=== PATIENT | female | born 2000 | race Caucasian/White ===

== ENCOUNTER 2021-04-17 10:52 | Emergency (ER) | payer SELFPAY ==
--- NOTE | 2021-04-17 12:01 | EDM.PDOC ---
ED HPI GENERAL MEDICAL PROBLEM - General Chief Complaint: Abdominal Pain Stated Complaint: LT STOMACH/BACK PAIN Time Seen by Provider: 04/17/21 10:54 Source of Information: Reports: Patient History Limitations: Reports: No Limitations - History of Present Illness INITIAL COMMENTS - FREE TEXT/NARRATIVE: 10-year-old female no relevant past medical history presents for left flank pain radiating to left lower quadrant abdomen since last night. Patient states that she woke up in the night with the pain and it went away after about 15 min. Woke up this morning with mild pain which gradually worsened throughout the day. Notes that pain is waxing and waning in intensity but constant. Denies any dysuria or increased urinary frequency. Uncertain if hematuria, patient is currently on her menstrual cycle. No history of renal stones. Patient does endorse nausea with a few episodes of nonbloody emesis. abdomen Pain Score (Numeric/FACES): 7 - Related Data Allergies Allergy/AdvReac Type Severity Reaction Status Date / Time No Known Allergies Allergy Verified 04/17/21 12:03 Home Meds: Home Meds . [No Known Home Meds] 04/17/21 [History] ED ROS GENERAL - Review of Systems Review Of Systems: Comprehensive ROS is negative, except as noted in HPI. ED EXAM, GENERAL - Physical Exam Exam: See Below Exam Limited By: No Limitations General Appearance: Alert, WD/WN, No Apparent Distress Ears: Hearing Grossly Normal Throat/Mouth: Normal Voice, No Airway Compromise Head: Atraumatic, Normocephalic Respiratory/Chest: No Respiratory Distress, Lungs Clear, Normal Breath Sounds, No Accessory Muscle Use Cardiovascular: Normal Peripheral Pulses, Regular Rate, Rhythm GI/Abdominal: Soft, Non-Tender Back Exam: CVA Tenderness (L). No: CVA Tenderness (R) Extremities: Normal Inspection Neurological: Alert, Normal Cognition, Normal Gait Psychiatric: Normal Affect, Normal Mood Skin Exam: Warm, Dry, Intact, Normal Color Course - Vital Signs Last Recorded V/S: Last Vital Signs Temp 97.9 F 04/17/21 12:00 Pulse 82 04/17/21 12:00 Resp 16 04/17/21 12:00 BP 111/72 04/17/21 12:00 Pulse Ox 99 04/17/21 12:00 - Orders/Labs/Meds Orders: Active Orders 24 hr Category Date Time Status Saline Lock Insert [OM.PC] Stat Oth 04/17/21 12:04 Ordered Labs: Laboratory Tests 04/17/21 04/17/21 04/17/21 Range/Units 11:57 11:57 12:20 WBC 5.92 (4.0-11.0) K/uL RBC 4.40 (4.30-5.90) M/uL Hgb 13.2 (12.0-16.0) g/dL Hct 39.2 (36.0-46.0) % MCV 89.1 (80.0-98.0) fL MCH 30.0 (27.0-32.0) pg MCHC 33.7 (31.0-37.0) g/dL RDW Std Deviation 42.3 (28.0-62.0) fl RDW Coeff of [place] 13 (11.0-15.0) % Plt Count 201 (150-400) K/uL MPV 10.70 (7.40-12.00) fL Neut % (Auto) 75.8 (48.0-80.0) % Lymph % (Auto) 18.2 (16.0-40.0) % [place] % (Auto) 5.1 (0.0-15.0) % Eos % (Auto) 0.7 (0.0-7.0) % Baso % (Auto) 0.2 (0.0-1.5) % Neut # (Auto) 4.5 (1.4-5.7) K/uL Lymph # (Auto) 1.1 (0.6-2.4) K/uL [place] # (Auto) 0.3 (0.0-0.8) K/uL Eos # (Auto) 0.0 (0.0-0.7) K/uL Baso # (Auto) 0.0 (0.0-0.1) K/uL Nucleated RBC % 0.0 /100WBC Nucleated RBCs # 0 K/uL Sodium (136-145) mmol/L Potassium (3.5-5.1) mmol/L Chloride (98-107) mmol/L Carbon Dioxide (21.0-32.0) mmol/L BUN (7.0-18.0) mg/dL Creatinine (0.6-1.0) mg/dL Est Cr Clr Drug Dosing mL/min Estimated GFR (MDRD) ml/min Glucose (74-106) mg/dL Calcium (8.5-10.1) mg/dL Total Bilirubin (0.2-1.0) mg/dL AST (15-37) IU/L ALT (14-63) IU/L Alkaline Phosphatase (46-116) U/L Total Protein (6.4-8.2) g/dL Albumin (3.4-5.0) g/dL Globulin (2.6-4.0) g/dL Albumin/Globulin Ratio (0.9-1.6) Urine Color YELLOW Urine Appearance CLEAR Urine pH 6.0 (5.0-8.0) Ur Specific [place] >= 1.030 (1.001-1.035) Urine Protein NEGATIVE (NEGATIVE) mg/dL Urine Glucose (UA) NEGATIVE (NEGATIVE) mg/dL Urine Ketones NEGATIVE (NEGATIVE) mg/dL Urine Occult Blood MODERATE H (NEGATIVE) Urine Nitrite NEGATIVE (NEGATIVE) Urine Bilirubin NEGATIVE (NEGATIVE) Urine Urobilinogen 0.2 (<2.0) EU/dL Ur Leukocyte Esterase NEGATIVE (NEGATIVE) Urine RBC 10-20 (0-2/HPF) Urine WBC 0-5 (0-5/HPF) Ur Epithelial Cells RARE (NONE-FEW) Urine Bacteria NOT SEEN (NEGATIVE) Urine Mucus LIGHT (NONE-MOD) Urine HCG, Qual NEGATIVE (NEGATIVE) 04/17/21 Range/Units 12:20 WBC (4.0-11.0) K/uL RBC (4.30-5.90) M/uL Hgb (12.0-16.0) g/dL Hct (36.0-46.0) % MCV (80.0-98.0) fL MCH (27.0-32.0) pg MCHC (31.0-37.0) g/dL RDW Std Deviation (28.0-62.0) fl RDW Coeff of [place] (11.0-15.0) % Plt Count (150-400) K/uL MPV (7.40-12.00) fL Neut % (Auto) (48.0-80.0) % Lymph % (Auto) (16.0-40.0) % [place] % (Auto) (0.0-15.0) % Eos % (Auto) (0.0-7.0) % Baso % (Auto) (0.0-1.5) % Neut # (Auto) (1.4-5.7) K/uL Lymph # (Auto) (0.6-2.4) K/uL [place] # (Auto) (0.0-0.8) K/uL Eos # (Auto) (0.0-0.7) K/uL Baso # (Auto) (0.0-0.1) K/uL Nucleated RBC % /100WBC Nucleated RBCs # K/uL Sodium 140 (136-145) mmol/L Potassium 3.8 (3.5-5.1) mmol/L Chloride 105 (98-107) mmol/L Carbon Dioxide 24.4 (21.0-32.0) mmol/L BUN 7 (7.0-18.0) mg/dL Creatinine 0.7 (0.6-1.0) mg/dL Est Cr Clr Drug Dosing 114.75 mL/min Estimated GFR (MDRD) > 60.0 ml/min Glucose 109 H (74-106) mg/dL Calcium 8.7 (8.5-10.1) mg/dL Total Bilirubin 0.9 (0.2-1.0) mg/dL AST 11 L (15-37) IU/L ALT 19 (14-63) IU/L Alkaline Phosphatase 71 (46-116) U/L Total Protein 7.6 (6.4-8.2) g/dL Albumin 3.9 (3.4-5.0) g/dL Globulin 3.7 (2.6-4.0) g/dL Albumin/Globulin Ratio 1.1 (0.9-1.6) Urine Color Urine Appearance Urine pH (5.0-8.0) Ur Specific [place] (1.001-1.035) Urine Protein (NEGATIVE) mg/dL Urine Glucose (UA) (NEGATIVE) mg/dL Urine Ketones (NEGATIVE) mg/dL Urine Occult Blood (NEGATIVE) Urine Nitrite (NEGATIVE) Urine Bilirubin (NEGATIVE) Urine Urobilinogen (<2.0) EU/dL Ur Leukocyte Esterase (NEGATIVE) Urine RBC (0-2/HPF) Urine WBC (0-5/HPF) Ur Epithelial Cells (NONE-FEW) Urine Bacteria (NEGATIVE) Urine Mucus (NONE-MOD) Urine HCG, Qual (NEGATIVE) Meds: Medications Discontinued Medications Generic Name Dose Route Start Last Admin Trade Name Yulia PRN Reason Stop Dose Admin Sodium Chloride 1,000 mls @ 999 mls/hr 04/17/21 12:04 04/17/21 12:19 Normal Saline IV 04/17/21 13:04 999 mls/hr .Bolus ONE Administration Ketorolac Tromethamine 15 mg 04/17/21 12:04 04/17/21 12:19 Ketorolac 15 Mg/Ml Sdv IVPUSH 04/17/21 12:05 15 mg STAT STA Administration Ondansetron HCl 4 mg 04/17/21 12:04 04/17/21 12:19 Ondansetron 4 Mg/2 Ml Sdv IVPUSH 04/17/21 12:05 4 mg ONETIME ONE Administration - Re-Assessments/Exams Free Text/Narrative Re-Assessment/Exam: 04/17/21 12:07 Patient symptoms concerning for renal stone. Lower suspicion ovarian torsion. Will get labs and CT imaging. 04/17/21 14:[address] imaging shows a 2 mm stone with minimal hydronephrosis. Will discharge with symptomatic medications and urology follow-up. Departure - Departure Time of Disposition: 14:01 Disposition: Home, Self-Care 01 Condition: Good Clinical Impression: Kidney stone - Discharge Information Instructions: Kidney Stones Referrals: Reagan Booker MD [Primary Care Provider] - Forms: ED Department Discharge Additional Instructions: Your CT shows a 2 mm left-sided kidney stone. This is highly likely to pass on its own, however, urology follow-up is provided below. If your pain is not well controlled at home you should come back to the emergency department for reassessment and pain control. I did send for prescriptions to your pharmacy. 1 is called Flomax which can help facilitate stone passage. Another is high- dose Motrin which can help with pain and inflammation. Another is Zofran which can be used symptomatically for relief of nausea. The other is Percocet which is an opioid pain medicine that should be used as needed for pain not well controlled with Motrin alone. Dr. Ugarte, [facility] [phone] [place] [address] The following information is given to patients seen in the emergency department who are being discharged to home. This information is to outline your options for follow-up care. We provide all patients seen in our emergency department with a follow-up referral. The need for follow-up, as well as the timing and circumstances, are variable depending upon the specifics of your emergency department visit. If you don't have a primary care physician on staff, we will provide you with a referral. We always advise you to contact your personal physician following an emergency department visit to inform them of the circumstance of the visit and for follow-up with them and/or the need for any referrals to a consulting specialist. The emergency department will also refer you to a specialist when appropriate. This referral assures that you have the opportunity for follow-up care with a specialist. All of these measure are taken in an effort to provide you with optimal care, which includes your follow-up. Under all circumstances we always encourage you to contact your private physician who remains a resource for coordinating your care. When calling for follow-up care, please make the office aware that this follow-up is from your recent emergency room visit. If for any reason you are refused follow-up, please contact the [facility] Emergency Department at and asked to speak to the emergency department charge nurse. Please follow up with your primary care physician. If you do not have a primary care physician, see below: [facility] [address] [place] [id number] [address] [facility] [address] [place] [id number] Sepsis Event Note (ED) - Focused Exam Vital Signs: Vital Signs Temp Pulse Resp BP Pulse Ox 04/17/21 12:00 97.9 F 82 16 111/72 99 - My Orders Last 24 Hours: My Active Orders 04/17/21 12:04 Saline Lock Insert [OM.PC] Stat - Assessment/Plan Last 24 Hours: My Active Orders 04/17/21 12:04 Saline Lock Insert [OM.PC] Stat
[2021-04-17] MEDS ORDERED: Ketorolac 15 MG/ML SDV IVPUSH STA (12:04)
[2021-04-17] MEDS ORDERED: Ondansetron 4 MG/2 ML SDV IVPUSH ONE ×2 (12:04→14:03)
[2021-04-17] MEDS ORDERED: Sodium Chloride 0.9% 1,000 ML IV ONE (12:04)
[2021-04-17 12:49] LABS: BLOOD UREA NITROGEN,BUN 7 mg/dL (7.0-18.0); CARBON DIOXIDE,CO2 24.4 mmol/L (21.0-32.0); CHLORIDE,CL 105 mmol/L (98-107); GLUCOSE RANDOM 109 mg/dL (74-106); POTASSIUM,K 3.8 mmol/L (3.5-5.1); SODIUM,NA 140 mmol/L (136-145)
--- NOTE | 2021-04-17 13:51 | CT ---
Indication: Left flank pain Technique: Nonenhanced axial CT imaging through the abdomen and pelvis. Sagittal and coronal reconstructions are provided. Comparison: None Findings: There is a 2 mm stone at the left ureterovesical junction. There is no significant hydronephrosis or renal edema. Additional small nonobstructive renal stones are noted bilaterally, measuring 2 mm in the left upper pole and 3 mm in the right upper pole. There is unremarkable noncontrast appearance of the liver, gallbladder, spleen, pancreas, and adrenal glands. There is normal caliber of the abdominal aorta. No lymphadenopathy is appreciated in the abdomen or pelvis. The stomach and duodenum are unremarkable. There is normal caliber of the small bowel. The appendix is noninflamed. There is no colonic wall thickening or mesenteric edema. The osseous structures are unremarkable. The included lung bases are clear. Impression: 1. A 2 mm stone at the left ureterovesical junction. No significant hydronephrosis or renal edema. 2. Additional small bilateral nonobstructive renal stones. Please note that all CT scans at this facility use dose modulation, iterative reconstruction, and/or weight-based dosing when appropriate to reduce radiation dose to as low as reasonably achievable. Dictated by Casey Zuleta MD @ 04/17/2021 1:51:06 PM (Electronically Signed)
[2021-04-17] MEDS ORDERED: Morphine 4 MG/ML VIAL IVPUSH ONE (14:03)
== END 2021-04-17 14:36 | disposition home or self-care (01) ==
LOC: MW.ED 10:52
DX: N20.0 Calculus of kidney (principal)
CPT/HCPCS: 36415; 74176; 80053; 81001; 81025; 85025; 96374; 96375; 99284; J1885; J2270; J2405; J7030

== ENCOUNTER 2021-05-02 12:20 | Emergency (ER) | payer SELFPAY ==
[2021-05-02] MEDS ORDERED: Ketorolac 15 MG/ML SDV IVPUSH ONE (12:43)
[2021-05-02] MEDS ORDERED: Sodium Chloride 0.9% 1,000 ML IV ONE (12:51)
[2021-05-02] MEDS ORDERED: Ondansetron 4 MG/2 ML SDV IVPUSH ONE (12:51)
--- NOTE | 2021-05-02 12:51 | EDM.PDOC ---
ED HPI GENERAL MEDICAL PROBLEM - General Chief Complaint: Genitourinary Problem Stated Complaint: STOMACH PAIN Time Seen by Provider: 05/02/21 12:26 Source of Information: Reports: Patient History Limitations: Reports: No Limitations - History of Present Illness INITIAL COMMENTS - FREE TEXT/NARRATIVE: Patient is a 20-year-old female who presents today for left-sided flank pain. Patient was seen here earlier this month for similar symptoms had a kidney stone. She reports increased pain today with vomiting but denies any blood in the urine. Patient states the pain is achy not made better or worse with any events not radiating. Patient has no other complaints. right lower back, right lower abdomen Pain Score (Numeric/FACES): 10 - Related Data Allergies Allergy/AdvReac Type Severity Reaction Status Date / Time No Known Allergies Allergy Verified 05/02/21 12:29 Home Meds: Home Meds . 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 Musculoskeletal History: Reports: None Neurological History: Reports: None Psychiatric History: Reports: None Endocrine/Metabolic History: Reports: None Hematologic History: Reports: None Immunologic History: Reports: None Oncologic (Cancer) History: Reports: None Dermatologic History: Reports: None - Infectious Disease History Infectious Disease History: Reports: Chicken Pox - Past Surgical History Head Surgeries/Procedures: Reports: None HEENT Surgical History: Reports: None Cardiovascular Surgical History: Reports: None Respiratory Surgical History: Reports: None GI Surgical History: Reports: None Female Surgical History: Reports: None Endocrine Surgical History: Reports: None Neurological Surgical History: Reports: None Musculoskeletal Surgical History: Reports: Other (See Below) Other Musculoskeletal Surgeries/Procedures:: 3 Hip surgeries Oncologic Surgical History: Reports: None Dermatological Surgical History: Reports: None Social & Family History - Family History Family Medical History: No Pertinent Family History - Tobacco Use Tobacco Use Status *Q: Never Tobacco User - Caffeine Use Caffeine Use: Reports: None - Recreational Drug Use Recreational Drug Use: No ED ROS GENERAL - Review of Systems Review Of Systems: See Below Constitutional: Reports: No Symptoms HEENT: Reports: No Symptoms Respiratory: Reports: No Symptoms Cardiovascular: Reports: No Symptoms Endocrine: Reports: No Symptoms GI/Abdominal: Reports: Abdominal Pain : Reports: No Symptoms Musculoskeletal: Reports: No Symptoms Skin: Reports: No Symptoms Neurological: Reports: No Symptoms Psychiatric: Reports: No Symptoms Hematologic/Lymphatic: Reports: No Symptoms Immunologic: Reports: No Symptoms ED EXAM, GENERAL - Physical Exam Exam: See Below Exam Limited By: No Limitations General Appearance: Alert, WD/WN, No Apparent Distress Eye Exam: Bilateral Eye: EOMI Ears: Normal External Exam Nose: Normal Inspection Head: Atraumatic, Normocephalic Neck: Normal Inspection Respiratory/Chest: No Respiratory Distress Cardiovascular: Normal Peripheral Pulses, Regular Rate, Rhythm GI/Abdominal: Normal Bowel Sounds, Soft, Non-Tender Back Exam: No: CVA Tenderness (L), CVA Tenderness (R) Extremities: Normal Inspection, Normal Range of Motion, Non-Tender Neurological: Alert, Oriented, Normal Cognition, Normal Gait Course - Vital Signs Last Recorded V/S: Last Vital Signs Temp 96.8 F L 05/02/21 12:27 Pulse 75 05/02/21 12:27 Resp 18 05/02/21 12:27 BP 106/65 05/02/21 12:27 Pulse Ox 98 05/02/21 12:27 - Orders/Labs/Meds Labs: Laboratory Tests 05/02/21 05/02/21 05/02/21 Range/Units 12:32 12:32 12:32 WBC 12.32 H (4.0-11.0) K/uL RBC 4.66 (4.30-5.90) M/uL Hgb 14.0 (12.0-16.0) g/dL Hct 41.7 (36.0-46.0) % MCV 89.5 (80.0-98.0) fL MCH 30.0 (27.0-32.0) pg MCHC 33.6 (31.0-37.0) g/dL RDW Std Deviation 42.7 (28.0-62.0) fl RDW Coeff of [place] 13 (11.0-15.0) % Plt Count 198 (150-400) K/uL MPV 11.20 (7.40-12.00) fL Neut % (Auto) 88.6 H (48.0-80.0) % Lymph % (Auto) 7.5 L (16.0-40.0) % [place] % (Auto) 3.7 (0.0-15.0) % Eos % (Auto) 0.1 (0.0-7.0) % Baso % (Auto) 0.1 (0.0-1.5) % Neut # (Auto) 10.9 H (1.4-5.7) K/uL Lymph # (Auto) 0.9 (0.6-2.4) K/uL [place] # (Auto) 0.5 (0.0-0.8) K/uL Eos # (Auto) 0.0 (0.0-0.7) K/uL Baso # (Auto) 0.0 (0.0-0.1) K/uL Nucleated RBC % 0.0 /100WBC Nucleated RBCs # 0 K/uL Sodium 139 (136-145) mmol/L Potassium 4.1 (3.5-5.1) mmol/L Chloride 102 (98-107) mmol/L Carbon Dioxide 26.0 (21.0-32.0) mmol/L BUN 12 (7.0-18.0) mg/dL Creatinine 1.0 (0.6-1.0) mg/dL Est Cr Clr Drug Dosing 83.54 mL/min Estimated GFR (MDRD) > 60.0 ml/min Glucose 133 H (74-106) mg/dL Calcium 9.6 (8.5-10.1) mg/dL Total Bilirubin 1.4 H (0.2-1.0) mg/dL AST 16 (15-37) IU/L ALT 22 (14-63) IU/L Alkaline Phosphatase 69 (46-116) U/L Total Protein 8.0 (6.4-8.2) g/dL Albumin 4.0 (3.4-5.0) g/dL Globulin 4.0 (2.6-4.0) g/dL Albumin/Globulin Ratio 1.0 (0.9-1.6) HCG, Qual NEGATIVE (NEG) Urine Color Urine Appearance Urine pH (5.0-8.0) Ur Specific [place] (1.001-1.035) Urine Protein (NEGATIVE) mg/dL Urine Glucose (UA) (NEGATIVE) mg/dL Urine Ketones (NEGATIVE) mg/dL Urine Occult Blood (NEGATIVE) Urine Nitrite (NEGATIVE) Urine Bilirubin (NEGATIVE) Urine Urobilinogen (<2.0) EU/dL Ur Leukocyte Esterase (NEGATIVE) Urine RBC (0-2/HPF) Urine WBC (0-5/HPF) Ur Epithelial Cells (NONE-FEW) Urine Bacteria (NEGATIVE) 05/02/21 Range/Units 13:54 WBC (4.0-11.0) K/uL RBC (4.30-5.90) M/uL Hgb (12.0-16.0) g/dL Hct (36.0-46.0) % MCV (80.0-98.0) fL MCH (27.0-32.0) pg MCHC (31.0-37.0) g/dL RDW Std Deviation (28.0-62.0) fl RDW Coeff of [place] (11.0-15.0) % Plt Count (150-400) K/uL MPV (7.40-12.00) fL Neut % (Auto) (48.0-80.0) % Lymph % (Auto) (16.0-40.0) % [place] % (Auto) (0.0-15.0) % Eos % (Auto) (0.0-7.0) % Baso % (Auto) (0.0-1.5) % Neut # (Auto) (1.4-5.7) K/uL Lymph # (Auto) (0.6-2.4) K/uL [place] # (Auto) (0.0-0.8) K/uL Eos # (Auto) (0.0-0.7) K/uL Baso # (Auto) (0.0-0.1) K/uL Nucleated RBC % /100WBC Nucleated RBCs # K/uL Sodium (136-145) mmol/L Potassium (3.5-5.1) mmol/L Chloride (98-107) mmol/L Carbon Dioxide (21.0-32.0) mmol/L BUN (7.0-18.0) mg/dL Creatinine (0.6-1.0) mg/dL Est Cr Clr Drug Dosing mL/min Estimated GFR (MDRD) ml/min Glucose (74-106) mg/dL Calcium (8.5-10.1) mg/dL Total Bilirubin (0.2-1.0) mg/dL AST (15-37) IU/L ALT (14-63) IU/L Alkaline Phosphatase (46-116) U/L Total Protein (6.4-8.2) g/dL Albumin (3.4-5.0) g/dL Globulin (2.6-4.0) g/dL Albumin/Globulin Ratio (0.9-1.6) HCG, Qual (NEG) Urine Color YELLOW Urine Appearance SLT CLOUDY Urine pH 6.0 (5.0-8.0) Ur Specific [place] >= 1.030 (1.001-1.035) Urine Protein 30 H (NEGATIVE) mg/dL Urine Glucose (UA) NEGATIVE (NEGATIVE) mg/dL Urine Ketones >=80 (NEGATIVE) mg/dL Urine Occult Blood LARGE H (NEGATIVE) Urine Nitrite NEGATIVE (NEGATIVE) Urine Bilirubin SMALL H (NEGATIVE) Urine Urobilinogen 0.2 (<2.0) EU/dL Ur Leukocyte Esterase NEGATIVE (NEGATIVE) Urine RBC 50-60 (0-2/HPF) Urine WBC 0-3 (0-5/HPF) Ur Epithelial Cells FEW (NONE-FEW) Urine Bacteria FEW (NEGATIVE) Meds: Medications Discontinued Medications Generic Name Dose Route Start Last Admin Trade Name Freq PRN Reason Stop Dose Admin Sodium Chloride 1,000 mls @ 1,000 mls/hr 05/02/21 12:51 05/02/21 12:56 Normal Saline IV 05/02/21 13:50 1,000 mls/hr .Bolus ONE Administration Ketorolac Tromethamine 15 mg 05/02/21 12:43 05/02/21 12:56 Ketorolac 15 Mg/Ml Sdv IVPUSH 05/02/21 12:44 15 mg ONETIME ONE Administration Ondansetron HCl 4 mg 05/02/21 12:51 05/02/21 12:56 Ondansetron 4 Mg/2 Ml Sdv IVPUSH 05/02/21 12:52 4 mg ONETIME ONE Administration - Re-Assessments/Exams Free Text/Narrative Re-Assessment/Exam: 05/02/21 14:36 Patient still has a 2 mm stone there. Stone is very close to the UVJ. Patient again will be discharged home to follow-up. Departure - Departure Time of Disposition: 14:37 Disposition: Home, Self-Care 01 Condition: Good Clinical Impression: Kidney stone - Discharge Information *PRESCRIPTION DRUG MONITORING PROGRAM REVIEWED*: Not Applicable *COPY OF PRESCRIPTION DRUG MONITORING REPORT IN PATIENT KAREN: Not Applicable Instructions: Kidney Stones, [id number] Referrals: Reagan Booker MD [Primary Care Provider] - Forms: ED Department Discharge Additional Instructions: Please continue to follow-up with your primary care physician. Your stone is moving through the system and should be passed very soon. Please continue to stay hydrated, take Tylenol Motrin as needed. The following information is given to patients seen in the emergency department who are being discharged to home. This information is to outline your options for follow-up care. We provide all patients seen in our emergency department with a follow-up referral. The need for follow-up, as well as the timing and circumstances, are variable depending upon the specifics of your emergency department visit. If you don't have a primary care physician on staff, we will provide you with a referral. We always advise you to contact your personal physician following an emergency department visit to inform them of the circumstance of the visit and for follow-up with them and/or the need for any referrals to a consulting specialist. The emergency department will also refer you to a specialist when appropriate. T his referral assures that you have the opportunity for follow-up care with a specialist. All of these measure are taken in an effort to provide you with optimal care, which includes your follow-up. Under all circumstances we always encourage you to contact your private physician who remains a resource for coordinating your care. When calling for follow-up care, please make the office aware that this follow-up is from your recent emergency room visit. If for any reason you are refused follow-up, please contact the [facility] Emergency Department at and asked to speak to the emergency department charge nurse. Please follow up with your primary care physician. If you do not have a primary care physician, see below: [facility] [address] [place] [phone] [facility] [address] [place] [phone] Sepsis Event Note (ED) - Focused Exam Vital Signs: Vital Signs Temp Pulse Resp BP Pulse Ox 05/02/21 12:27 96.8 F L 75 18 106/65 98 - Assessment/Plan Plan: Patient is a 20-year-old female who presents today for left-sided flank pain. Patient has history of kidney stones. Will of IV fluids pain control and reassess.
[2021-05-02 13:06] LABS: BLOOD UREA NITROGEN,BUN 12 mg/dL (7.0-18.0); CHLORIDE,CL 102 mmol/L (98-107); GLUCOSE RANDOM 133 mg/dL (74-106); POTASSIUM,K 4.1 mmol/L (3.5-5.1); SODIUM,NA 139 mmol/L (136-145)
--- NOTE | 2021-05-02 14:18 | CT ---
INDICATION: Right flank pain. Possible kidney stone. TECHNIQUE: Volumetric helical scanning of the abdomen and pelvis was performed without contrast material. Coronal and sagittal reconstructions were obtained. COMPARISON: Abdomen/pelvis CT of 04/17/2021. FINDINGS: A 2 mm stone previously demonstrated in the right renal collecting system is now in the distal right ureter within 1 cm of the ureterovesical junction, as seen on image 156 of series 201. Mild right hydroureter and hydronephrosis is demonstrated along with mild periureteral stranding. Several 1 mm right renal collecting system stones are demonstrated, including 1 in the right renal pelvis. Several 1 mm left renal collecting system stones are also noted. The kidneys are normal in size, shape and attenuation. The bladder is grossly negative. A left ovarian cyst measuring up to 2.8 cm noted. The ovaries are otherwise unremarkable as is the uterus. No free fluid is evident. The liver, bile ducts, spleen, adrenal glands and pancreas are negative. No bowel abnormality is apparent. The appendix is not identified with certainty. The lung bases are clear, and the heart size is normal. IMPRESSION: 1. Mildly obstructing 2 mm distal right ureteral stone, within 1 cm of the UVJ. 2. 1 mm renal collecting system stones bilaterally. 3. 2.8 cm left ovarian cyst. Please note that all CT scans at this facility use dose modulation, iterative reconstruction, and/or weight-based dosing when appropriate to reduce radiation dose to as low as reasonably achievable. Dictated by Nikos Prince MD @ 05/02/2021 2:18:34 PM (Electronically Signed)
== END 2021-05-02 14:49 | disposition home or self-care (01) ==
LOC: MW.ED 12:20
DX: N20.2 Calculus of kidney with calculus of ureter (principal); N83.202 Unspecified ovarian cyst, left side
CPT/HCPCS: 36415; 74176; 80053; 81001; 84703; 85025; 96374; 96375; 99284; J1885; J2405; J7030

== ENCOUNTER 2023-02-16 06:11 | Emergency (ER) | payer SELFPAY ==
[2023-02-16] MEDS ORDERED: Sodium Chloride 0.9% 10 ML Syringe FLUSH PRN (06:44)
[2023-02-16] MEDS ORDERED: diphenhydrAMINE 50 MG/ML SDV IVPUSH ONE (06:44)
[2023-02-16] MEDS ORDERED: Sodium Chloride 0.9% 1,000 ML IV ONE ×2 (06:44→08:50)
[2023-02-16] MEDS ORDERED: Metoclopramide 10 MG/2 ML SDV IVPUSH ONE (06:44)
[2023-02-16] MEDS ORDERED: Sodium Chloride 0.9% 2.5 ML Syringe FLUSH PRN (06:44)
[2023-02-16] MEDS ORDERED: Ketorolac 30 MG/ML SDV IVPUSH ONE (06:44)
[2023-02-16] MEDS ORDERED: Dexamethasone 10 MG/ML SDV IVPUSH ONE (06:44)
[2023-02-16 07:39] LABS: BASOPHILS PERCENT AUTO 0.3 % (0.0-1.5); EOSINOPHILS PERCENT AUTO 0.1 % (0.0-7.0); HEMATOCRIT 41.6 % (36.0-46.0); HEMOGLOBIN 13.5 g/dL (12.0-16.0); LYMPHOCYTES ABSOLUTE AUTO 1.4 K/uL (0.6-2.4); LYMPHOCYTES PERCENT AUTO 17.3 % (16.0-40.0); MEAN CORPUSCULAR HEMOGLOBIN 28.7 pg (27.0-32.0); MEAN CORPUSCULAR HGB CONC 32.5 g/dL (31.0-37.0); MEAN CORPUSCULAR VOLUME 88.5 fL (80.0-98.0); MONOCYTES ABSOLUTE AUTO 0.4 K/uL (0.0-0.8); NEUTROPHILS ABSOLUTE AUTO 6.1 K/uL (1.4-5.7); NEUTROPHILS PERCENT AUTO 77.3 % (48.0-80.0); NRBC ABSOLUTE 0 K/uL; PLATELET COUNT,PLT 242 K/uL (150-400); WHITE BLOOD CELL COUNT,WBC 7.82 K/uL (4.0-11.0)
[2023-02-16 07:58] LABS: A/G RATIO 1.1 (0.9-1.6); ALBUMIN 3.8 g/dL (3.4-5.0); BILIRUBIN TOTAL 1.2 mg/dL (0.2-1.0); CALCIUM 9.1 mg/dL (8.5-10.1); CARBON DIOXIDE,CO2 27.2 mmol/L (21.0-32.0); CREATININE 0.7 mg/dL (0.6-1.0); EST CRCL DRUG DOSING (CG) 112.83 mL/min; PROTEIN TOTAL,TP 7.4 g/dL (6.4-8.2)
[2023-02-16] MEDS ORDERED: droPERidol 5 MG/2 ML SDV IV ONE (08:45)
== END 2023-02-16 09:56 | disposition home or self-care (01) ==
LOC: MW.ED 06:11
DX: R51.9 Headache, unspecified (principal)
CPT/HCPCS: 36415; 70450; 80053; 84703; 85025; 93005; 96361; 96374; 96375; 99284; J1100; J1200; J1790; J1885; J2765; J3490; J7030; 93010; 99283

== ENCOUNTER 2024-01-07 19:42 | Emergency (ER) | payer BC ==
[2024-01-07] MEDS: LORazepam 0.5 MG Tab PO ONE (20:53)
== END 2024-01-07 21:51 | disposition home or self-care (01) ==
LOC: MW.ED 19:42
DX: F41.0 Panic disorder [episodic paroxysmal anxiety] (principal); Z79.899 Other long term (current) drug therapy; Z75.8 Other problems related to medical facilities and other health care
CPT/HCPCS: 99283; A9270

== ENCOUNTER 2024-03-26 03:01 | Emergency (ER) | payer BC ==
[2024-03-26] MEDS: Ibuprofen 800 MG Tab PO ONE (03:19)
[2024-03-26] MEDS: Amoxicillin/Clavulanate K 875-125 MG Tab PO ONE (03:19)
[2024-03-26] MEDS: Acetaminophen 500 MG Tab PO ONE (03:19)
== END 2024-03-26 03:32 | disposition home or self-care (01) ==
LOC: MW.ED 03:01
DX: H66.91 Otitis media, unspecified, right ear (principal); Z79.899 Other long term (current) drug therapy
CPT/HCPCS: 99282; A9270; 99283

== ENCOUNTER 2024-05-14 17:39 | Emergency (ER) | payer SELFPAY ==
[2024-05-14] MEDS ORDERED: Sodium Chloride 0.9% 2.5 ML Syringe FLUSH PRN (18:07)
[2024-05-14] MEDS: Ketorolac 30 MG/ML SDV IVPUSH ONE (18:22)
[2024-05-14] MEDS: Sodium Chloride 0.9% 10 ML Syringe FLUSH PRN (18:22)
[2024-05-14] MEDS: Ondansetron 4 MG/2 ML SDV IVPUSH ONE (18:22)
[2024-05-14 18:26] LABS: BASOPHILS ABSOLUTE AUTO 0.02 K/uL (0.00-0.20); BASOPHILS PERCENT AUTO 0.2 % (0.0-1.0); EOSINOPHILS ABSOLUTE AUTO 0.08 K/uL (0.00-0.45); EOSINOPHILS PERCENT AUTO 0.8 % (0.0-6.0); HEMATOCRIT 35.9 % (37.0-47.0); HEMOGLOBIN 11.9 g/dL (12.0-16.0); IMMATURE GRAN ABSOLUTE AUTO 0.02 K/uL (0.00-0.05); IMMATURE GRAN PERCENT AUTO 0.2 % (0.0-0.4); LYMPHOCYTES PERCENT AUTO 13.3 % (24.0-44.0); MEAN CORPUSCULAR HEMOGLOBIN 28.9 pg (28.0-32.0); MEAN CORPUSCULAR HGB CONC 33.1 g/dL (32.0-36.0); MEAN CORPUSCULAR VOLUME 87.1 fL (83.0-99.0); MEAN PLATELET VOLUME 10.4 fL (9.4-12.3); MONOCYTES ABSOLUTE AUTO 0.93 K/uL (0.00-0.80); MONOCYTES PERCENT AUTO 9.5 % (0.0-8.0); NEUTROPHILS ABSOLUTE AUTO 7.45 K/uL (1.80-7.70); PLATELET COUNT,PLT 221 K/uL (150-400); RED BLOOD CELL COUNT 4.12 M/uL (4.10-5.30)
[2024-05-14 18:45] LABS: BILIRUBIN,URINE NEGATIVE (NEGATIVE); COLOR,URINE YELLOW; GLUCOSE,URINE NEGATIVE (NEGATIVE); KETONES,URINE NEGATIVE (NEGATIVE); LEUKOCYTE ESTERASE,URINE NEGATIVE (NEGATIVE); NITRITE,URINE NEGATIVE (NEGATIVE); OCCULT BLOOD,URINE SMALL (NEGATIVE); PH,URINE 8.5 (5.0-8.0); PROTEIN,URINE NEGATIVE (NEGATIVE); UROBILINOGEN,URINE 0.2 EU/dL (<2.0)
[2024-05-14 18:47] LABS: APPEARANCE,URINE SLT CLOUDY
[2024-05-14 18:48] LABS: A/G RATIO 1.1 (0.9-1.6); ALANINE AMINOTRANSFERASE,ALT 13 IU/L (14-63); ALBUMIN 3.6 g/dL (3.4-5.0); ALKALINE PHOSPHATASE 60 U/L (46-116); ASPARTATE AMNIOTRANSFERASE,AST 12 IU/L (15-37); BILIRUBIN TOTAL 2.1 mg/dL (0.2-1.0); BLOOD UREA NITROGEN,BUN 14 mg/dL (7.0-18.0); CALCIUM 8.8 mg/dL (8.5-10.1); CARBON DIOXIDE,CO2 30.1 mmol/L (21.0-32.0); CHLORIDE,CL 102 mmol/L (98-107); CREATININE 0.7 mg/dL (0.6-1.0); GLUCOSE RANDOM 91 mg/dL (74-106); LIPASE 25 U/L (16-77); POTASSIUM,K 3.6 mmol/L (3.5-5.1); PROTEIN TOTAL,TP 6.9 g/dL (6.4-8.2); SODIUM,NA 138 mmol/L (136-145)
[2024-05-14 18:48] LABS: BACTERIA,URINE 2+ (NEGATIVE); EPITHELIAL CELLS,URINE OCCASIONAL (NONE-FEW); WBC,URINE 0-5 (0-5/HPF)
[2024-05-14 18:54] LABS: ESTIMATED GFR 125 mL/min (>60)
[2024-05-14] MEDS: cefTRIAXone 2 GM in Sodium Chloride 0.9% 50 ML IV ONE (19:14)
[2024-05-14] MEDS: Iopamidol 755 MG/ML 500 ML Multipack Bottle IVPUSH ONE (19:24)
[2024-05-14 21:23] LABS: C. TRACHOMATIS BY PCR NOT DETECTED; N. GONORRHOEAE BY PCR NOT DETECTED
== END 2024-05-14 20:22 | disposition home or self-care (01) ==
LOC: MW.ED 17:39
DX: K52.9 Noninfective gastroenteritis and colitis, unspecified (principal)
CPT/HCPCS: 36415; 74177; 80053; 81001; 81025; 83690; 85025; 87491; 87591; 96365; 96375; 99284; J0696; J1885; J2405; J3490; Q9967; 99283

== ENCOUNTER 2025-03-27 15:26 | Inpatient (IN) | payer OTHER ==
[2025-03-27] MEDS ORDERED: Sodium Chloride 0.9% 2.5 ML Syringe FLUSH PRN (16:11)
[2025-03-27] MEDS ORDERED: Sodium Chloride 0.9% 10 ML Syringe FLUSH PRN (16:11)
[2025-03-27 16:58] LABS: BASOPHILS ABSOLUTE AUTO 0.03 K/uL (0.00-0.20); BASOPHILS PERCENT AUTO 0.5 % (0.0-1.0); EOSINOPHILS ABSOLUTE AUTO 0.07 K/uL (0.00-0.45); EOSINOPHILS PERCENT AUTO 1.1 % (0.0-6.0); IMMATURE GRAN ABSOLUTE AUTO 0.01 K/uL (0.00-0.05); IMMATURE GRAN PERCENT AUTO 0.2 % (0.0-0.4); LYMPHOCYTES ABSOLUTE AUTO 1.83 K/uL (1.00-4.80); LYMPHOCYTES PERCENT AUTO 29.1 % (24.0-44.0); MEAN PLATELET VOLUME 11.0 fL (9.4-12.3); MONOCYTES ABSOLUTE AUTO 0.39 K/uL (0.00-0.80); MONOCYTES PERCENT AUTO 6.2 % (0.0-8.0); NEUTROPHILS ABSOLUTE AUTO 3.96 K/uL (1.80-7.70); NEUTROPHILS PERCENT AUTO 62.9 % (41.0-71.0); NRBC ABSOLUTE 0.00 K/uL (0.00-0.02); NRBC PERCENT 0.0 /100WBC (0.0-0.2); PLATELET COUNT,PLT 237 K/uL (150-400); RED BLOOD CELL COUNT 4.52 M/uL (4.10-5.30); WHITE BLOOD CELL COUNT,WBC 6.29 K/uL (3.9-11.3)
[2025-03-27 17:01] LABS: APPEARANCE,URINE CLEAR; GLUCOSE,URINE NEGATIVE (NEGATIVE); OCCULT BLOOD,URINE NEGATIVE (NEGATIVE)
[2025-03-27 17:26] LABS: A/G RATIO 1.0 (0.9-1.6); ALANINE AMINOTRANSFERASE,ALT 18.0 IU/L (14-63); ASPARTATE AMNIOTRANSFERASE,AST 16.0 IU/L (15-37); BILIRUBIN TOTAL 0.9 mg/dL (0.2-1.0); BLOOD UREA NITROGEN,BUN 10.0 mg/dL (7.0-18.0); CARBON DIOXIDE,CO2 26.2 mmol/L (21.0-32.0); CHLORIDE,CL 106.0 mmol/L (98-107); CREATININE 0.7 mg/dL (0.6-1.0); EST CRCL DRUG DOSING (CG) 108.77 mL/min; GLUCOSE RANDOM 97.0 mg/dL (74-106); POTASSIUM,K 3.6 mmol/L (3.5-5.1); PROTEIN TOTAL,TP 7.4 g/dL (6.4-8.2); SODIUM,NA 141.0 mmol/L (136-145)
[2025-03-27 17:29] LABS: ESTIMATED GFR 124.0 mL/min (>60)
[2025-03-27] MEDS: Iopamidol 755 MG/ML 500 ML Multipack Bottle IVPUSH STA (17:46)
[2025-03-27] MEDS: Ondansetron 4 MG/2 ML SDV IVPUSH ONE (18:08)
[2025-03-27] MEDS: ceFAZolin 2 GM in Water For Injection, Sterile 20 ML IVPUSH ONE (19:47)
[2025-03-27] MEDS ORDERED: Propofol 200 MG/20 ML SDV ONE ×3 (19:51→22:38)
[2025-03-27] MEDS ORDERED: propofoL 500 MG/50 ML 50 ML ONE (19:51)
[2025-03-27] MEDS ORDERED: dexmedeTOMIDine HCl 200 MCG/2 ML SDV ONE (20:04)
[2025-03-27] MEDS ORDERED: Midazolam 1 MG/ML 2 ML SDV ONE (20:04)
[2025-03-27] MEDS ORDERED: fentaNYL 100 MCG/2 ML SDV ONE (20:04)
[2025-03-27] MEDS ORDERED: Ropivacaine 0.5% 5 MG/ML 30 ML SDV ONE (20:08)
[2025-03-27] MEDS ORDERED: Dexamethasone 4 MG/ML 5 ML MDV ONE (21:05)
[2025-03-27] MEDS ORDERED: Ondansetron 4 MG/2 ML SDV ONE (21:05)
[2025-03-27] MEDS ORDERED: Ketamine HCL/NACL, ISO-OSM 50 MG/5 ML Syringe ONE (21:11)
[2025-03-27] MEDS ORDERED: Ketorolac 30 MG/ML SDV ONE (22:19)
[2025-03-27] MEDS ORDERED: Naloxone 0.4 MG/ML SDV IVPUSH PRN (22:28)
[2025-03-27] MEDS ORDERED: Albuterol 0.083% 2.5 MG/3 ML Neb Soln NEB PRN (22:28)
[2025-03-27] MEDS ORDERED: Ondansetron 4 MG/2 ML SDV IVPUSH PRN (22:28)
[2025-03-27] MEDS: fentaNYL 50 MCG/ML SDV IVPUSH PRN (23:28)
[2025-03-28] MEDS ORDERED: Naloxone 0.4 MG/ML SDV IVPUSH PRN (00:12)
[2025-03-28] MEDS ORDERED: Acetaminophen/oxyCODONE 325-5 MG Tab PO PRN (00:12)
[2025-03-28] MEDS ORDERED: Promethazine 25 MG/ML SDV IM PRN (00:12)
[2025-03-28] MEDS: Ketorolac 30 MG/ML SDV IVPUSH ONE (01:02)
[2025-03-28] MEDS: Ondansetron 4 MG/2 ML SDV IVPUSH PRN (01:03)
[2025-03-28] MEDS: Acetaminophen/oxyCODONE 325-5 MG Tab PO PRN (02:35)
[2025-03-28 05:51] LABS: BASOPHILS ABSOLUTE AUTO 0.01 K/uL (0.00-0.20); BASOPHILS PERCENT AUTO 0.1 % (0.0-1.0); EOSINOPHILS ABSOLUTE AUTO 0.00 K/uL (0.00-0.45); EOSINOPHILS PERCENT AUTO 0.0 % (0.0-6.0); IMMATURE GRAN ABSOLUTE AUTO 0.04 K/uL (0.00-0.05); IMMATURE GRAN PERCENT AUTO 0.4 % (0.0-0.4); LYMPHOCYTES ABSOLUTE AUTO 0.64 K/uL (1.00-4.80); LYMPHOCYTES PERCENT AUTO 5.7 % (24.0-44.0); MEAN PLATELET VOLUME 10.3 fL (9.4-12.3); MONOCYTES ABSOLUTE AUTO 0.33 K/uL (0.00-0.80); MONOCYTES PERCENT AUTO 3.0 % (0.0-8.0); NEUTROPHILS ABSOLUTE AUTO 10.15 K/uL (1.80-7.70); NEUTROPHILS PERCENT AUTO 90.8 % (41.0-71.0); NRBC ABSOLUTE 0.00 K/uL (0.00-0.02); NRBC PERCENT 0.0 /100WBC (0.0-0.2); PLATELET COUNT,PLT 182 K/uL (150-400); RED BLOOD CELL COUNT 3.95 M/uL (4.10-5.30); WHITE BLOOD CELL COUNT,WBC 11.17 K/uL (3.9-11.3)
[2025-03-28] MEDS ORDERED: Ketorolac 30 MG/ML SDV IVPUSH PRN (06:00)
[2025-03-28 06:14] LABS: BLOOD UREA NITROGEN,BUN 10.0 mg/dL (7.0-18.0); CARBON DIOXIDE,CO2 22.9 mmol/L (21.0-32.0); CHLORIDE,CL 106.0 mmol/L (98-107); CREATININE 0.7 mg/dL (0.6-1.0); EST CRCL DRUG DOSING (CG) 108.77 mL/min; GLUCOSE RANDOM 148.0 mg/dL (74-106); POTASSIUM,K 4.4 mmol/L (3.5-5.1); SODIUM,NA 136.0 mmol/L (136-145)
[2025-03-28 06:23] LABS: ESTIMATED GFR 124.0 mL/min (>60)
[2025-03-28] MEDS: Acetaminophen/HYDROcodone 325-5 MG Tab PO PRN (09:09)
== END 2025-03-29 10:20 | disposition home or self-care (01) | DRG 743 ==
LOC: MW.ED 15:26 → MW.SDS 19:40 → MW.MS 19:40 → MW.SDS 03-28 00:12 → MW.MS 03-28 04:42
PROVIDERS: ADMIT Obstetrics & Gynecology; ATTEND Obstetrics & Gynecology Obstetrics
PROC: 0UB10ZZ Excision of Left Ovary, Open Approach (ICD-10-PCS; principal; 2025-03-28)
DX: N83.202 Unspecified ovarian cyst, left side (principal); N83.519 Torsion of ovary and ovarian pedicle, unspecified side; N80.122 Deep endometriosis of left ovary; K44.9 Diaphragmatic hernia without obstruction or gangrene; E86.0 Dehydration; G43.909 Migraine, unspecified, not intractable, without status migrainosus; Z90.49 Acquired absence of other specified parts of digestive tract
CPT/HCPCS: 36415; 74177; 74177-26; 80048; 80053; 81003; 84703; 85025; 86850; 86900; 86901; 96361; 96374; 96375; 99238; 99284; 99285-25; A4216; A9270-GY; J0665; J0690; J1100; J1171; J1308; J1885; J2250; J2270; J2371; J2405; J2704; J2795; J3010; J3490; J7030; Q9967